=== PATIENT | female | born 1970 | race Caucasian/White ===

== ENCOUNTER → 2016-08-24 | Outpatient (CLI) | payer OTHER ==
[~2016-08-24] MED LIST: AMIT150T3 PO; AMIT50TA3 PO; CLIN300C3 PO; CYCL10TA9 PO; DOXY100C2 PO; HYDR-1231 PO; LAMO100T69 PO; LAMO25TA4 PO; LAMO50TA3 PO; NAPR500T PO; SUMA4PEN3 SQ
== END ==
LOC: RAD 08:16
PROVIDERS: ATTEND Nurse Practitioner Family
DX: R10.11 Right upper quadrant pain (principal)

== ENCOUNTER → 2016-08-27 | Outpatient (CLI) | payer OTHER ==
--- NOTE | 2016-08-27 09:14 | Diagnostic Imaging Report ---
PROCEDURE: US Gallbladder. TECHNIQUE: Multiple real-time grayscale images were obtained over the right upper quadrant in various projections. INDICATION: Right upper quadrant pain. FINDINGS: The visualized portions of the pancreas appear unremarkable. The liver is fairly homogeneous with no focal lesion. The liver parenchyma is slightly hyperechoic. There is hepatopetal flow in the portal vein. The gallbladder demonstrates no stones or wall thickening. No pericholecystic fluid. The CBD is 2 mm in caliber. The right kidney is 10.8 cm in length. No hydronephrosis or focal lesion. No fluid collection in the upper right abdomen is seen. IMPRESSION: 1. No gallstones or evidence of cholecystitis. 2. Slightly increased echogenicity of the liver may correlate with fatty infiltration. Dictated by: Dictated on workstation # [id number]
== END ==
LOC: RAD 06:58
PROVIDERS: ATTEND Nurse Practitioner Family
DX: R10.11 Right upper quadrant pain (principal)
CPT/HCPCS: 76705

== ENCOUNTER 2017-02-05 13:59 | Emergency (ER) | payer OTHER ==
[~2017-02-05] VITALS: Ht 160 cm; Wt 72.6 kg
--- OUTSIDE RECORDS SUMMARY | 2017-02-05 14:04 | XMS REPORT ---
Author Author MARILIA VELOZ Organization [facility] Address [address] [place] [address] Care Team Providers Care Lamp Shade Assembler Name Role Phone MARILIA VELOZ Unavailable PROBLEMS Type Condition ICD9-CM Code WAF20-ID Code Onset Dates Condition Status SNOMED Code Problem Hypercholesterolemia E78.00 Active 89137995 Problem Bladder spasms N32.89 Active 996917545 Problem COPD mixed type J44.9 Active 64195452 Problem Acute exacerbation of chronic obstructive pulmonary disease (COPD) J44.1 Active 469941353 Problem Intractable migraine without status migrainosus, unspecified migraine type G43.919 Active 480529777 Problem Acquired hypothyroidism E03.9 Active 458415482 Problem Gastroesophageal reflux disease without esophagitis K21.9 Active 242979913 ALLERGIES Substance Reaction Event Type Date Status Sulfamethoxazole-Trimethoprim Unknown Drug Allergy Jun, Active SOCIAL HISTORY Never Assessed PLAN OF CARE Activity Details Follow Up prn Reason: VITAL SIGNS Height 65 in 2016-06-21 Weight 188 lbs 2016-06-21 Temperature 98.1 degrees Fahrenheit 2016-06-21 Heart Rate 80 bpm 2016-06-21 Respiratory Rate 20 2016-06-21 BMI 31.28 kg/m2 2016-06-21 Blood pressure systolic 110 mmHg 2016-06-21 Blood pressure diastolic 70 mmHg 2016-06-21 MEDICATIONS Medication Instructions Dosage Frequency Start Date End Date Duration Status Prilosec OTC 20 MG Orally Once a day 1 tablet 24h Active PredniSONE 20 MG Orally Once a day 2 tablet 24h Jun, Jun, 5 days Active Doxycycline Hyclate 20 MG Orally Twice a day 1 tablet 12h Jun, Jun, 10 day(s) Active RESULTS Name Result Date Reference Range Xray : Chest (IN HOUSE) 2016-06-21 PROCEDURES Procedure Date Ordered Result Body Site CHEST X-RAY Jun 21, 2016 IMMUNIZATIONS No Known Immunizations MEDICAL (GENERAL) HISTORY Type Description Date Medical History low blood sugar Medical History Migraine Surgical History hysterectomy Surgical History tonsillectomy and adenoidectomy Surgical History Surgery on R arm- has 4 pins in arm now Surgical History cyst removed from uterus age 21 Hospitalization History surgery Hospitalization History migraines- [facility] 2012
--- OUTSIDE RECORDS SUMMARY | 2017-02-05 14:04 | XMS REPORT ---
Author Author KARY LARA [facility] Address [address] [place] [address] Care Team Providers Care Silica Spray Mixer Name Role Phone KARY LARA Unavailable PROBLEMS Type Condition ICD9-CM Code DTN06-UP Code Onset Dates Condition Status SNOMED Code Assessment Insect bite (nonvenomous) of abdominal wall, initial encounter S30.861A Dec, Active 34590067 Assessment Bitten or stung by nonvenomous insect and other nonvenomous arthropods, initial encounter W57.XXXA Dec, Active 993388806 ALLERGIES Substance Reaction Event Type Date Status Sulfamethoxazole-Trimethoprim Unknown Drug Allergy Dec, Active SOCIAL HISTORY No smoking Hx information available PLAN OF CARE VITAL SIGNS Height 65 in 2015-12-28 Weight 187 lbs 2015-12-28 Heart Rate 88 bpm 2015-12-28 Respiratory Rate 22 2015-12-28 BMI 31.12 kg/m2 2015-12-28 Blood pressure systolic 132 mmHg 2015-12-28 Blood pressure diastolic 88 mmHg 2015-12-28 MEDICATIONS Medication Instructions Dosage Frequency Start Date End Date Duration Status Doxycycline Hyclate 100 MG Orally every 12 hrs 1 capsule 12h Dec, Jan, 10 days Active RESULTS No Results PROCEDURES Procedure Date Ordered Related Diagnosis Body Site Office Visit, Est Pt., Level 3 Dec 28, 2015 IMMUNIZATIONS No Known Immunizations
--- OUTSIDE RECORDS SUMMARY | 2017-02-05 14:04 | XMS REPORT ---
Author Author KARY LARA Organization [employer] Address Unknown Phone Unavailable Care Team Providers Care Real Estate Subagent Name Role Phone KARY LARA CP Unavailable Allergies, Adverse Reactions, Alerts Substance Reaction Event Type Sulfamethoxazole-Trimethoprim Info Not Available Drug Allergy Problems Problem Type Condition Code Onset Dates Condition Status Assessment Intractable migraine without status migrainosus, unspecified migraine type G43.919 Active Problem Intractable migraine without status migrainosus, unspecified migraine type G43.919 Active Medications Medication Code System Code Instructions Start Date End Date Status Dosage Excedrin Migraine [facility] [address]-81 250-250-65 MG Orally every 6 hrs 2 tablets as needed Procedures Procedure Coding System Code Date THER/PROPH/DIAG INJ, SC/IM CPT-4 70035 Feb 20, 2016 TORADOL (IM) 60 MG/2ML (UP TO 15 MG) CPT-4 J1885 Feb 20, 2016 PHENERGAN 50MG/ML CPT-4 J2550 Feb 20, 2016 Office Visit, Est Pt., Level 3 CPT-4 77637 Feb 20, 2016 Vital Signs Date/Time: Feb 20, 2016 Cardiac Monitoring Heart Rate 78 bpm Weight 187 lbs Height 65 in BMI 31.12 Index Blood Pressure Diastolic 100 mmHg Blood Pressure Systolic 140 mmHg Results No Known Results Summary Purpose [employer] Submission
--- OUTSIDE RECORDS SUMMARY | 2017-02-05 14:04 | XMS REPORT ---
Author ANTOINETTE Owen [employer] Address Unknown Phone Unavailable Care Team Providers Care Managing Cognitive Engineer Name Role Phone ANTOINETTE WHEELER CP Unavailable Allergies, Adverse Reactions, Alerts Substance Reaction Event Type Sulfamethoxazole-Trimethoprim Info Not Available Drug Allergy Problems Problem Type Condition Code Onset Dates Condition Status Assessment Dental examination Z01.20 Active Problem Intractable migraine without status migrainosus, unspecified migraine type G43.919 Active Medications Medication Code System Code Instructions Start Date End Date Status Dosage Excedrin Migraine [facility] [address]-01 250-250-65 MG Orally every 6 hrs 2 tablets as needed [place] [facility] [address]-67 5-325 MG Orally every 6 hrs Mar 05, 2016 Mar 09, 2016 1 tablet as needed Amoxicillin [facility] [address]-40 500 MG Orally Four times a day Mar 05, 2016 Mar 12, 2016 1 capsule Procedures Procedure Coding System Code Date INTRAORL-PERIAPICAL 1 FILM 19159 CPT-4 D0220 Mar 05, 2016 INTRAORL-PERIAPICAL EA ADD FILM CPT-4 D0230 Mar 05, 2016 LTD ORAL EVALUATION - PROBLEM FOCUS CPT-4 D0140 Mar 05, 2016 Vital Signs Date/Time: Mar 05, 2016 Blood Pressure Diastolic 81 mmHg Blood Pressure Systolic 130 mmHg Height 65 in Results No Known Results Summary Purpose [employer] Submission
--- OUTSIDE RECORDS SUMMARY | 2017-02-05 14:04 | XMS REPORT ---
Author CLAUDIA Romeo Organization [employer] Address Unknown Phone Unavailable Care Team Providers Care Mutual Fund Manager Name Role Phone CLAUDIA FISCHER CP Unavailable Allergies, Adverse Reactions, Alerts Substance Reaction Event Type Sulfamethoxazole-Trimethoprim Info Not Available Drug Allergy Problems Problem Type Condition Code Onset Dates Condition Status Assessment Fatigue R53.83 Active Assessment Encounter for screening for diabetes mellitus Z13.1 Active Medications Medication Code System Code Instructions Start Date End Date Status Dosage Pre- NDC 0 not defined Procedures Procedure Coding System Code Date ASSAY THYROID STIM HORMONE CPT-4 92632 Mar 10, 2015 COMPREHEN METABOLIC PANEL CPT-4 65172 Mar 10, 2015 GLYCATED HEMOGLOBIN TEST CPT-4 30687 Mar 10, 2015 VENIPUNCT, ROUTINE* CPT-4 40904 Mar 10, 2015 COMPLETE CBC W/AUTO DIFF WBC CPT-4 33256 Mar 10, 2015 Office Visit, Est Pt., Level 4 CPT-4 94271 Mar 10, 2015 Vital Signs Date/Time: Mar 10, 2015 Temperature 98.5 F Weight 177.6 lbs Height 65 in BMI 29.55 Index Blood Pressure Diastolic 84 mmHg Blood Pressure Systolic 134 mmHg Cardiac Monitoring Heart Rate 92 bpm Results Name Result Date Reference Range Unit Abnormality Flag TSH ROUTINE VENIPUNCTURE A1C (IN HOUSE) Summary Purpose [employer] Submission
--- OUTSIDE RECORDS SUMMARY | 2017-02-05 14:04 | XMS REPORT ---
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 Active 47517169 Problem Acute exacerbation of chronic obstructive pulmonary disease (COPD) J44.1 Active 369152911 Problem Intractable migraine without status migrainosus, unspecified migraine type G43.919 Active 856990187 Problem Acquired hypothyroidism E03.9 Active 523779258 Problem Gastroesophageal reflux disease without esophagitis K21.9 Active 332550863 ALLERGIES Substance Reaction Event Type Date Status Sulfamethoxazole-Trimethoprim Unknown Drug Allergy Jul, Active SOCIAL HISTORY Never Assessed PLAN OF CARE Activity Details Follow Up 3 Months Reason:copd VITAL SIGNS Height 65 in 2016-07-06 Weight 187.6 lbs 2016-07-06 Temperature 98.6 degrees Fahrenheit 2016-07-06 Heart Rate 78 bpm 2016-07-06 Respiratory Rate 18 2016-07-06 BMI 31.21 kg/m2 2016-07-06 Blood pressure systolic 120 mmHg 2016-07-06 Blood pressure diastolic 78 mmHg 2016-07-06 MEDICATIONS Medication Instructions Dosage Frequency Start Date End Date Duration Status Prilosec OTC 20 MG Orally Once a day 1 tablet 24h Active RESULTS Name Result Date Reference Range TSH 2016-07-06 TSH 5.480 0.450-4.500 CBC 2016-07-06 WBC 13.4 3.4-10.8 RBC 5.04 3.77-5.28 Hemoglobin 14.8 11.1-15.9 Hematocrit 44.5 34.0-46.6 MCV 88 79-97 MCH 29.4 26.6-33.0 MCHC 33.3 31.5-35.7 RDW 13.3 12.3-15.4 Platelets 208 150-379 Neutrophils 46 Lymphs 47 Monocytes 5 Eos 2 Basos 0 Neutrophils (Absolute) 6.1 1.4-7.0 Lymphs (Absolute) 6.3 0.7-3.1 Monocytes(Absolute) 0.6 0.1-0.9 Eos (Absolute) 0.2 0.0-0.4 Baso (Absolute) 0.1 0.0-0.2 Immature Granulocytes 0 Immature Grans (Abs) 0.0 0.0-0.1 LIPID PANEL 2016-07-06 Cholesterol, Total 247 100-199 Triglycerides 361 0-149 HDL Cholesterol 35 >39 VLDL Cholesterol Brian 72 5-40 LDL Cholesterol Calc 140 0-99 CMP 2016-07-06 Glucose, Serum 108 65-99 BUN 10 6-24 Creatinine, Serum 0.84 0.57-1.00 eGFR If NonAfricn Am 84 >59 eGFR If Africn Am 97 >59 BUN/Creatinine Ratio 12 9-23 Sodium, Serum 147 134-144 Potassium, Serum 4.5 3.5-5.2 Chloride, Serum 104 96-106 Carbon Dioxide, Total 19 18-29 Calcium, Serum 9.8 8.7-10.2 Protein, Total, Serum 7.6 6.0-8.5 Albumin, Serum 5.0 3.5-5.5 Globulin, Total 2.6 1.5-4.5 A/G Ratio 1.9 1.1-2.5 Bilirubin, Total 0.3 0.0-1.2 Alkaline Phosphatase, S 99 39-117 AST (SGOT) 16 0-40 ALT (SGPT) 11 0-32 Xray : Ankle, Right 3 views (IN HOUSE) 2016-07-06 PROCEDURES Procedure Date Ordered Result Body Site COMPLETE CBC W/AUTO DIFF WBC July 06, 2016 COMPREHEN METABOLIC PANEL July 06, 2016 VENIPUNCT, ROUTINE* July 06, 2016 LIPID PANEL July 06, 2016 ASSAY THYROID STIM HORMONE July 06, 2016 X-RAY EXAM OF ANKLE July 06, 2016 IMMUNIZATIONS No Known Immunizations MEDICAL (GENERAL) HISTORY Type Description Date Medical History low blood sugar Medical History Migraine Surgical History hysterectomy Surgical History tonsillectomy and adenoidectomy Surgical History Surgery on R arm- has 4 pins in arm now Surgical History cyst removed from uterus age 21 Hospitalization History surgery Hospitalization History [facility]- [facility] 2012
--- OUTSIDE RECORDS SUMMARY | 2017-02-05 14:04 | XMS REPORT ---
Author Author ANTOINETTE Gutierrez [facility] Address Unknown Care Team Providers Care Graphic Editor Name Role Phone ANTOINETTE Gutierrez Unavailable PROBLEMS Type Condition ICD9-CM Code STD09-SE Code Onset Dates Condition Status SNOMED Code Problem Hypercholesterolemia E78.00 Active 37008116 Problem Bladder spasms N32.89 Active 649349616 Problem COPD mixed type J44.9 Active 39358907 Problem Acute exacerbation of chronic obstructive pulmonary disease (COPD) J44.1 Active 134606082 Problem Intractable migraine without status migrainosus, unspecified migraine type G43.919 Active 681024773 Problem Acquired hypothyroidism E03.9 Active 036907399 Problem Gastroesophageal reflux disease without esophagitis K21.9 Active 757290607 ALLERGIES Substance Reaction Event Type Date Status Sulfamethoxazole-Trimethoprim Unknown Drug Allergy Mar, Active SOCIAL HISTORY No smoking Hx information available PLAN OF CARE VITAL SIGNS Height 65 in 2016-03-20 Blood pressure systolic 156 mmHg 2016-03-20 Blood pressure diastolic 79 mmHg 2016-03-20 MEDICATIONS Medication Instructions Dosage Frequency Start Date End Date Duration Status Excedrin Migraine 250-250-65 MG Orally every 6 hrs 2 tablets as needed 6h Active RESULTS No Results PROCEDURES Procedure Date Ordered Related Diagnosis Body Site EXTRAC ERUPTED TOOTH/EXPOSED ROOT Mar 20, 2016 EXTRAC ERUPTED TOOTH/EXPOSED ROOT Mar 20, 2016 IMMUNIZATIONS No Known Immunizations
--- OUTSIDE RECORDS SUMMARY | 2017-02-05 14:05 | XMS REPORT | Continuity of Care Document ---
Author Author [facility] Address Unknown Phone Unavailable Allergies Active Description Code Type Severity Reaction Onset Reported/Identified Relationship to Patient Clinical Status Yes Sulfa (Sulfonamide Antibiotics) [id number] Drug Allergy Unknown N/A 08/07/2013 Medications Problems Date Dx Coded Attending Type Code Diagnosis Diagnosed By 01/31/2012 Ot 327.51 PERIODIC LIMB MOVEMENT DISORDER 01/31/2012 Ot 786.09 RESPIRATORY ABNORM NEC 08/07/2013 TATUM KIDD, CHAIM Salazar Ot 682.0 CELLULITIS OF FACE 08/07/2013 TATUM KIDD, CHAIM Salazar Ot 782.2 LOCAL SUPRFICIAL SWELLNG 08/07/2013 TATUM KIDD, CHAIM Salazar Ot V12.04 PERSONAL HIST OF METHICILLIN RESISTANT S 04/23/2014 Ot 789.01 04/23/2014 Ot 530.81 04/23/2014 Ot V76.51 04/23/2014 Ot 783.21 04/23/2014 Ot 787.02 04/23/2014 Ot 783.21 04/23/2014 Ot 787.02 04/23/2014 Ot 783.21 04/23/2014 Ot 787.02 04/23/2014 Ot 783.21 04/23/2014 Ot 787.02 09/08/2014 RANDALL COLE Ot 719.47 JOINT PAIN-ANKLE 09/08/2014 RANDALL COLE Ot 824.8 FX ANKLE NOS-CLOSED 09/08/2014 RANDALL COLE Ot E000.8 OTHER EXTERNAL CAUSE STATUS 09/08/2014 RANDALL COLE Ot E849.0 ACCIDENT IN HOME 09/08/2014 RANDALL COLE Ot E927.0 OVEREXERTION FROM SUDDEN STRENUOUS MOVEM 01/31/2015 JOHANNY REYNOLDS APRN Ot 845.00 SPRAIN OF ANKLE NOS 01/31/2015 JOHANNY REYNOLDS APRN Ot 959.7 LOWER LEG INJURY NOS 01/31/2015 JOHANNY REYNOLDS AUDIENCE DEVELOPMENT MANAGER Ot E000.8 OTHER EXTERNAL CAUSE STATUS 01/31/2015 JOHANNY REYNOLDS AUDIENCE DEVELOPMENT MANAGER Ot E888.9 FALL NOS 11/11/2015 RANDALL COLE Ot 719.47 JOINT PAIN-ANKLE 11/11/2015 RANDALL COLE Ot 824.8 FX ANKLE NOS-CLOSED 11/11/2015 RANDALL COLE Ot E000.8 OTHER EXTERNAL CAUSE STATUS 11/11/2015 RANDALL COLE Ot E849.0 ACCIDENT IN HOME 11/11/2015 RANDALL COLE Ot E927.0 OVEREXERTION FROM SUDDEN STRENUOUS MOVEM 09/05/2016 JESUS RAMIREZ APRN Ot R10.11 RIGHT UPPER QUADRANT PAIN Procedures Results Encounters ACCT No. Visit Date/Time Discharge Status Pt. Type Provider Facility Loc./Unit Complaint [id number] 01/23/2013 15:47:00 01/23/2013 23: 59:59 CLS Outpatient BRIE IBARRA DDS [id number] 08/27/2016 06:58:00 2016 23:59:59 CLS Outpatient JESUS RAMIREZ AUDIENCE DEVELOPMENT MANAGER [facility] RAD RUQ PAIN [id number] 08/24/2016 08:16:00 2016 23:59:59 CLS Outpatient JESUS RAMIREZ AUDIENCE DEVELOPMENT MANAGER [facility] RAD RUQ PAIN [id number] 01/31/2015 11:39:00 2014 12:52:00 DIS Emergency JOHANNY REYNOLDS APRN [facility] ER RIGHT FOOT INJURY [id number] 09/08/2014 16:51:00 2014 19:28:00 DIS Emergency RANDALL COLE [facility] ER R ANKLE PAIN /INJ [id number] 09/03/2014 12:10:00 2014 23:59:59 CLS Outpatient PEDRO SWEENEY [facility] QUICK [id number] 08/07/2013 09:41:00 2013 10:21:00 DIS Emergency TATUM KIDD, CHAIM Salazar [facility] ER POSS ABSCESS ON FOREHEAD [id number] 04/23/2014 09:04:00 Document Registration [id number] 04/23/2014 09:04:00 Document Registration [id number] 01/30/2012 20:06:00 Document Registration [id number] 02/15/2009 07:48:00 Document Registration [id number] 02/08/2009 07:05:00 Document Registration [id number] 01/27/2009 10:05:00 Document Registration [id number] 08/12/2008 09:00:00 Document Registration
[2017-02-05] MEDS ORDERED: OMEP20TA33 PO (14:17)
[2017-02-05] MEDS ORDERED: LEVO100T PO (14:17)
[2017-02-05] MEDS ORDERED: OXYB1PAT TD (14:17)
[2017-02-05 14:25] LABS: KETONES,URINE NEGATIVE (NEGATIVE); LEUKOCYTE ESTERASE ,URINE 1+ (NEGATIVE); NITRITE,URINE POSITIVE (NEGATIVE); PH,URINE 6.5 (5-9); PROTEIN,URINE 1+ (NEGATIVE); UROBILINOGEN,URINE 8 MG/DL (NORMAL)
[2017-02-05 14:34] LABS: BILIRUBIN,URINE 3+ (NEGATIVE)
--- NOTE | 2017-02-05 14:50 | ED GU-Female ---
General Chief Complaint: Abdominal/GI Problems Stated Complaint: LOWER ABD PAIN Nursing Triage Note: patient reports she feels like she is giving . patient reports increased urination Nursing Sepsis Screen: No Definite Risk Source: patient Exam Limitations: no limitations History of Present Illness Time seen by provider: 14:48 Initial Comments To ER with a 2 month history of suprapubic and vaginal pain. She saw [facility] at the onset of this and was told she had a cystocele. She is scheduled to see Dr. Pastrana from gynecology on March 06. Patient states that her pain is Worse today and associated with nausea. Timing/Duration: constant, getting worse Severity/Quality: moderate Location: suprapubic, vaginal Activities at Onset: none Prior Genitourinary Problems: none Associated Symptoms: denies symptoms Allergies and Home Medications Allergies Coded Allergies: Sulfa (Sulfonamide Antibiotics) (Unverified Allergy, Unknown, 08/07/13) Home Medications Levothyroxine Sodium 100 Mcg Tablet, 100 MCG PO, (Reported) Omeprazole Magnesium 20 Mg Tablet.dr, 20 MG PO, (Reported) Oxybutynin 1 Each Patch.td.4, 1 EACH TD, (Reported) Constitutional: see HPI EENTM: see HPI Respiratory: no symptoms reported Cardiovascular: no symptoms reported Genitourinary: no symptoms reported Musculoskeletal: no symptoms reported Skin: no symptoms reported Psychiatric/Neurological: No Symptoms Reported Endocrine: No Symptoms Reported Past Bsukepb-[place]ip[place]-Tgneck Hx Patient Social History Alcohol Use: Denies Use Recreational Drug Use: No Recent Foreign Travel: No Contact w/Someone Who Travel: No Recent Infectious Disease Expo: No Physical Abuse: No Sexual Abuse: No Seasonal Allergies Seasonal Allergies: No Reproductive System Hx Reproductive Disorders: No Sexually 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 Psychosocial Behavioral Health Disorders: Anxiety, Bipolar, Depression Suicide Risk Score: 0 Blood Transfusions Adverse Reaction to a Blood Tr: No Family Medical History Significant Family History: No Pertinent Family Hx Physical Exam Vital Signs Vital Sign - Last 12Hours 02/05/17 14:12 Temp 98.2 Pulse 83 Resp 18 B/P (MAP) 139/98 Pulse Ox 98 Capillary Refill : Less Than 3 Seconds General Appearance: WD/WN, no apparent distress HEENT: PERRL/EOMI, normal ENT inspection Neck: non-tender, full range of motion Respiratory: no respiratory distress, no accessory muscle use Gastrointestinal: normal bowel sounds, non tender Extremities: normal range of motion, non-tender Neurologic/Psychiatric: alert, normal mood/affect, oriented x 3 Skin: normal color, warm/dry Progress/Results/Core Measures Results/Orders Lab Results Laboratory Tests Test 02/05/17 14:10 02/05/17 14:29 Range/Units Urine Color ORANGE Urine Clarity CLEAR Urine pH 6.5 5-9 Urine Specific [place] 1.010 L 1.016-1.022 Urine Protein 1+ H NEGATIVE Urine Glucose (UA) NEGATIVE NEGATIVE Urine Ketones NEGATIVE NEGATIVE Urine Nitrite POSITIVE H NEGATIVE Urine Bilirubin 3+ H NEGATIVE Urine Urobilinogen 8 H NORMAL MG/DL Urine Leukocyte Esterase 1+ H NEGATIVE Urine RBC (Auto) NEGATIVE NEGATIVE Urine RBC NONE /HPF Urine WBC 2-5 /HPF Urine Squamous Epithelial Cells 10-25 H /HPF Urine Crystals NONE /LPF Urine Bacteria LARGE H /HPF Urine Casts NONE /LPF Urine Mucus NEGATIVE /LPF Urine Culture Indicated YES White Blood Count 9.3 4.3-11.0 10^3/uL Red Blood Count 4.72 4.35-5.85 10^6/uL Hemoglobin 14.0 11.5-16.0 G/DL Hematocrit 42 35-52 % Mean Corpuscular Volume 89 80-99 FL Mean Corpuscular Hemoglobin 30 25-34 PG Mean Corpuscular Hemoglobin Concent 33 32-36 G/DL Red Cell Distribution Width 13.4 10.0-14.5 % Platelet Count 177 130-400 10^3/uL Mean Platelet Volume 13.0 H 7.4-10.4 FL Neutrophils (%) (Auto) 54 42-75 % Lymphocytes (%) (Auto) 39 12-44 % Monocytes (%) (Auto) 5 0-12 % Eosinophils (%) (Auto) 0 0-10 % Basophils (%) (Auto) 1 0-10 % Neutrophils # (Auto) 5.0 1.8-7.8 X 10^3 Lymphocytes # (Auto) 3.7 1.0-4.0 X 10^3 Monocytes # (Auto) 0.5 0.0-1.0 X 10^3 Eosinophils # (Auto) 0.0 0.0-0.3 10^3/uL Basophils # (Auto) 0.1 0.0-0.1 10^3/uL Sodium Level 140 135-145 MMOL/L Potassium Level 4.0 3.6-5.0 MMOL/L Chloride Level 109 H 98-107 MMOL/L Carbon Dioxide Level 22 21-32 MMOL/L Anion Gap 9 5-14 MMOL/L Blood Urea Nitrogen 9 7-18 MG/DL Creatinine 0.87 0.60-1.30 MG/DL Estimat Glomerular Filtration Rate > 60 BUN/Creatinine Ratio 10 Glucose Level 101 70-105 MG/DL Calcium Level 9.8 8.5-10.1 MG/DL Total Bilirubin 0.7 0.1-1.0 MG/DL Aspartate Amino Transf (AST/SGOT) 16 5-34 U/L Alanine Aminotransferase (ALT/SGPT) 10 0-55 U/L Alkaline Phosphatase 75 40-136 U/L Total Protein 7.4 6.4-8.2 GM/DL Albumin 4.6 H 3.2-4.5 GM/DL My Orders Orders - JOHANNY REYNOLDS APRN Ua Culture If Indicated (02/05/17 14:17) Urine Bedside (02/05/17 14:17) Urine Culture (02/05/17 14:10) Cbc With Automated Diff (02/05/17 14:46) Comprehensive Metabolic Panel (02/05/17 14:46) Saline Lock/Iv-Start (02/05/17 14:46) Ct Abd/Pelvis Wo(Kidney Stone) (02/05/17 14:46) Ketorolac Injection (Toradol Injection) (02/05/17 15:00) Ns Iv 1000 Ml (Sodium Chloride 0.9%) (02/05/17 15:00) Fentanyl Injection (Sublimaze Injection (02/05/17 15:00) Medications Given in ED Current Medications Medications Dose Ordered Sig/Stephanie Route Start Time Stop Time Status Last Admin Dose Admin Fentanyl Citrate 50 mcg ONCE ONCE IVP 02/05/17 15:00 02/05/17 15:01 DC 02/05/17 14:56 50 MCG Ketorolac Tromethamine 30 mg ONCE ONCE IVP 02/05/17 15:00 02/05/17 15:01 DC 02/05/17 14:56 30 MG Vital Signs/I&O Vital Sign - Last 12Hours 02/05/17 14:12 Temp 98.2 Pulse 83 Resp 18 B/P (MAP) 139/98 Pulse Ox 98 Blood Pressure Mean: 112 Diagnostic Imaging Diagonstic Imaging: CT Comments NAME: YIMI CH [facility] REC#: [id number] PT STATUS: REG ER : 1970 PHYSICIAN: JOHANNY REYNOLDS APRN ADMIT DATE: 02/05/17/ER Draft Date of Exam:02/05/17 CT ABD/PELVIS WO(KIDNEY STONE) PROCEDURE: CT urinary tract, rule out kidney stone. TECHNIQUE: Multiple contiguous axial images were obtained through the abdomen and pelvis without the use of intravenous contrast. INDICATION: Lower abdominal pain. FINDINGS: The lung bases appear clear. The liver, the gallbladder, the spleen, the pancreas, and the adrenal glands appear unremarkable for an unenhanced exam. The kidneys demonstrate no stones or hydronephrosis. No ureteric or bladder stone is seen. The appendix is normal. There is no bowel obstruction. There is suggestion of prior hysterectomy. Correlate with surgical history. The abdominal aorta is normal in caliber. No para-aortic significantly enlarged lymph node is seen. The osseous structures appear grossly unremarkable. IMPRESSION: No urinary tract stones. The appendix is normal. Dictated on workstation # [id number] Dict: 02/05/17 1529 Trans: 02/05/17 1540 [id number] Interpreted by: SABINE AVENDANO MD Electronically signed by: Departure Impression Impression: Primary Impression: Pelvic pain Disposition: 01 HOME, SELF-CARE Condition: Stable Departure-Patient Inst. Decision time for Depature: 15:43 Referrals: TRAN DUNN DO (PCP) Primary Care Physician KELLIE MAYEN (Family) Primary Care Physician Patient Instructions: Acute Pelvic Pain Add. Discharge Instructions: 1. Keep your appointment with Dr. Pastrana 2. Return to ER for any concerns 3. All discharge instructions reviewed with patient and/or family. Voiced understanding. Scripts Tramadol HCl (Ultram) 50 Mg Tablet 50 MG PO Q6H Y for PAIN-MODERATE TO SEVERE, #14 TAB Prov: JOHANNY REYNOLDS APRN 02/05/17 Work/School Note: Work Release Form Date Seen in the Emergency Department: Feb 05, 2017 Return to Work: Feb 06, 2017 JOHANNY REYNOLDS APRN Feb 05, 2017 14:50
[2017-02-05 14:51] LABS: BASOPHILS # (AUTO) 0.1 10^3/uL (0.0-0.1); BASOPHILS % (AUTO) 1 % (0-10); EOSINOPHILS % (AUTO) 0 % (0-10); LYMPHOCYTES # (AUTO) 3.7 X 10^3 (1.0-4.0); LYMPHOCYTES % (AUTO) 39 % (12-44); MEAN CORPUSCULAR HEMOGLOBIN 30 PG (25-34); MEAN CORPUSCULAR HGB CONC 33 G/DL (32-36); MEAN CORPUSCULAR VOLUME 89 FL (80-99); MONOCYTES # (AUTO) 0.5 X 10^3 (0.0-1.0); MONOCYTES % (AUTO) 5 % (0-12); NEUTROPHILS % (AUTO) 54 % (42-75); PLATELET COUNT 177 10^3/uL (130-400); RED BLOOD COUNT 4.72 10^6/uL (4.35-5.85); RED CELL DISTRIBUTION WIDTH 13.4 % (10.0-14.5); WHITE BLOOD COUNT 9.3 10^3/uL (4.3-11.0)
[2017-02-05] MEDS ORDERED: NS IV 1000 ML 1,000 ML IV SCH (15:00)
[2017-02-05] MEDS ORDERED: fentaNYL INJECTION 100 MCG/2 ML AMP IVP ONE (15:00)
[2017-02-05] MEDS ORDERED: KETOROLAC 30 MG/ML VIAL IVP ONE (15:00)
[2017-02-05 15:07] LABS: ALANINE AMINOTRANSFERASE 10 U/L (0-55); ALBUMIN 4.6 GM/DL (3.2-4.5); ANION GAP 9 MMOL/L (5-14); ASPARTATE AMINO TRANSFERASE 16 U/L (5-34); BILIRUBIN,TOTAL 0.7 MG/DL (0.1-1.0); BLOOD UREA NITROGEN 9 MG/DL (7-18); BUN/CREATININE RATIO 10; CALCIUM 9.8 MG/DL (8.5-10.1); CARBON DIOXIDE 22 MMOL/L (21-32); CHLORIDE 109 MMOL/L (98-107); CREATININE SERUM 0.87 MG/DL (0.60-1.30); GFR ESTIMATED > 60; GLUCOSE 101 MG/DL (70-105); SODIUM 140 MMOL/L (135-145); TOTAL PROTEIN 7.4 GM/DL (6.4-8.2)
--- NOTE | 2017-02-05 15:40 | Diagnostic Imaging Report ---
PROCEDURE: CT urinary tract, rule out kidney stone. TECHNIQUE: Multiple contiguous axial images were obtained through the abdomen and pelvis without the use of intravenous contrast. INDICATION: Lower abdominal pain. FINDINGS: The lung bases appear clear. The liver, the gallbladder, the spleen, the pancreas, and the adrenal glands appear unremarkable for an unenhanced exam. The kidneys demonstrate no stones or hydronephrosis. No ureteric or bladder stone is seen. The appendix is normal. There is no bowel obstruction. There is suggestion of prior hysterectomy. Correlate with surgical history. The abdominal aorta is normal in caliber. No para-aortic significantly enlarged lymph node is seen. The osseous structures appear grossly unremarkable. IMPRESSION: No urinary tract stones. The appendix is normal. Dictated by: Dictated on workstation # [id number]
[2017-02-05] MEDS ORDERED: TRAM-42 PO (15:44)
[2017-02-05 15:52] VITALS: BP 139/98
== END 2017-02-05 15:53 | disposition home or self-care (01) ==
LOC: EDUNIT# 13:59 → ER 14:01
DX: F31.9 Bipolar disorder, unspecified; Z90.710 Acquired absence of both cervix and uterus; R10.2 Pelvic and perineal pain; F41.9 Anxiety disorder, unspecified
CPT/HCPCS: 36415; 74176; 80053; 81000; 85025; 87088; 87186; 96374; 96375